=== PATIENT | male | born 1945 | race Caucasian/White ===

== ENCOUNTER 2021-02-01 11:06 | Outpatient (REF) | payer MEDICARE, SELFPAY ==
[2021-02-01 11:15] VITALS: BP 132/74; PULSE 75; RESP 16; TEMP 36.7; O2SAT 98; BMI 27.1
== END 2021-02-01 11:07 | disposition home or self-care (01) ==
LOC: HO.MS 11:06
PROVIDERS: PCP Internal Medicine; Visit Provider Ophthalmology
PROC: (CPT 66821; principal; 2021-02-01 12:40)
DX: H26.491 Other secondary cataract, right eye (principal); I10 Essential (primary) hypertension; E11.9 Type 2 diabetes mellitus without complications; Z96.1 Presence of intraocular lens; D86.9 Sarcoidosis, unspecified; Z90.81 Acquired absence of spleen; Z79.82 Long term (current) use of aspirin; Z79.899 Other long term (current) drug therapy; Z88.8 Allergy status to other drugs, medicaments and biological substances; Z88.1 Allergy status to other antibiotic agents; Z91.041 Radiographic dye allergy status
CPT/HCPCS: 66821